=== PATIENT | female | born 1960 | race African-American/Black ===

== ENCOUNTER 2019-12-15 07:58 | Emergency (ER) | payer SELFPAY ==
[~2019-12-15] VITALS: Ht 170.2 cm; Wt 75.0 kg
[2019-12-15] MEDS ORDERED: MULTI COMPLETE PO (08:22)
[2019-12-15 10:15] VITALS: BP 127/84
[2019-12-15] MEDS ORDERED: MIRALAX3350 N1 PO (12:48)
== END 2019-12-15 10:15 | disposition home or self-care (01) | DRG 392 ==
LOC: ED 07:58
DX: K59.00 Constipation, unspecified (principal)